=== PATIENT | female | born 1975 | race Caucasian/White ===

== ENCOUNTER 2019-04-18 14:06 | Emergency (ER) | payer SELFPAY ==
[2019-04-18 14:08] VITALS: BP 146/77; PULSE 81; RESP 16; TEMP 36.8; O2SAT 98; BMI 29.3
--- NOTE | 2019-04-18 14:20 | RAD_ITS ---
STUDY: X-RAY - RIGHT SHOULDER REASON FOR EXAM: Female, 43 years old. PATIENT FELL WHILE ROLLERSKATING TODAY. PAIN IN RIGHT SHOULDER, RIGHT UPPER RIBS ANTERIORLY. PAIN IN RIGHT HIP AND PELVIS WELL. TECHNIQUE: 4 view(s) of the shoulder. COMPARISON: None. FINDINGS: Normal glenohumeral articulation. Normal acromioclavicular joint. Normal acromion. Normal humeral head and visualized proximal humerus. The soft tissue structures are unremarkable. Normal visualized pulmonary apex. RAD/Shoulder min 2 Views IMPRESSION: Normal x-ray examination of the shoulder. Electronically Signed: Faizan Henry MD ([place]) at 14:54 EST , Service support ,
--- NOTE | 2019-04-18 14:20 | RAD_ITS ---
STUDY: X-RAY - UNILATERAL RIBS ( RIGHT ) WITH CHEST REASON FOR EXAM: Female, 43 years old. PATIENT FELL WHILE ROLLERSKATING TODAY. PAIN IN RIGHT SHOULDER, RIGHT UPPER RIBS ANTERIORLY. PAIN IN RIGHT HIP AND PELVIS WELL. TECHNIQUE - RIBS: 4 view(s) of the ribs. TECHNIQUE - CHEST: PA COMPARISON: None. FINDINGS - RIBS: Normal visualized ribs without a demonstrated fracture. FINDINGS - CHEST: The lungs are clear and expanded. There is no demonstrated pleural abnormality. Normal size heart. Normal mediastinum and damon. Normal visualized pulmonary arteries. Normal visualized aortic arch and descending thoracic aorta. Normal visualized thoracic spine. Normal visualized ribs, clavicles, and shoulders. There is no demonstrated abnormality of the visualized soft tissue structures of the upper abdomen. RAD/Ribs Uni Min 3V w/PA Chest IMPRESSION: RIBS: Normal x-ray examination of the ribs. CHEST: Normal x-ray examination of the chest. Electronically Signed: Faizan Henry MD ([place]) at 14:52 EST , Service support ,
--- NOTE | 2019-04-18 14:31 | RAD_ITS ---
STUDY: X-RAY - PELVIS AND RIGHT HIP REASON FOR EXAM: Female, 43 years old. PATIENT FELL WHILE ROLLERSKATING TODAY. PAIN IN RIGHT SHOULDER, RIGHT UPPER RIBS ANTERIORLY. PAIN IN RIGHT HIP AND PELVIS WELL. TECHNIQUE: 3 views of the pelvis and hip. COMPARISON: None. FINDINGS: There is a non-specific bowel gas pattern. Normal visualized soft tissue structures. There is surgical clips of the lower left abdomen and right/left pelvis. Normal bilateral iliac wings, sacroiliac joints and visualized sacrum. Normal bilateral superior and inferior pubic rami. Normal pubic symphysis. Normal bilateral ischial tuberosities. Normal visualized femoral head. Normal acetabulum. Normal hip joint. RAD/HIP, UNI W/ Pelvis 2-3 Views IMPRESSION: Normal x-ray examination of the pelvis and right hip. Electronically Signed: Faizan Henry MD ([place]) at 14:54 EST , Service support ,
[2019-04-18] MEDS: HYDROcodone Bitartrate/Apap 5/325 Tablet PO (14:50)
--- NOTE | 2019-04-18 15:01 | ED.VISSUMM ---
- ER Visit Summary Date of Service: 04/18/19 Chief Complaint: [Fall with injury to right hip and shoulder] History of Present Illness: The patient is a 43 F [presents to the emergency department with complaint of a fall this afternoon about 20 minutes ago. Patient states she was rollerskating when she tripped and fell and her son fell on top of her. Patient complaining of pain to the right shoulder and right hip. Patient has been ambulatory. Patient is right-hand dominant. She denies any neck pain. Denies any paresthesias. Patient complains of pain to the right anterior chest as well with breathing. Has no medical history. She denies head injury or loss of consciousness. She denies any paresthesias.] Physical Examination: [HEENT-PERRLA, EOMI. Cranial nerves II through XII grossly intact. TMs clear. Mucous membranes moist. No adenopathy. No C-spine tenderness to palpation. Normal active range of motion is painless. Cardiovascular-regular rate and rhythm without murmur or ectopy Lungs-clear to auscultation, chest wall stable without crepitus or subcu emphysema. Patient has tenderness palpation over the right anterior chest wall and into the mid axillary line. No external evidence of trauma noted. Abdomen-normoactive bowel sounds, soft, nontender, no rebound or rigidity, no peritoneal signs. Extremities-intact ?4, normal range of motion, normal pulses, atraumatic. Patient has tenderness palpation over the right shoulder diffusely over the glenohumeral joint. There is no obvious deformity. No sulcus sign. She is neuro vastly intact distally. She has limited range of motion secondary to pain.] Hip-patient is some tenderness over the right hip and pelvis region. No shortening or external rotation noted the extremity. She is neuro vastly intact distally. Test Results: [X-rays of the right shoulder as well as the right hip and right ribs with chest x-ray obtained were all unremarkable. No fractures noted.] Emergency Department Course and Treatment: [She was given 1 [place]]. Patient was given a sling. Treatment Plan: [She will be given a sling and a prescription for naproxen as well as a few [place] for severe pain. Patient to follow-up with primary care physician within next 5 to 7 days.] Disposition: [Discharged home in stable condition.] Impression: [Fall Contusion right shoulder, right hip, right chest wall] This note was generated with [employer] dictation software. It may contain incorrect words, spelling, and punctuation that were not noted in review of the chart prior to signing ED Disposition - Plan for ED Patient: Referrals: Care Physician,No Primary [Primary Care Provider] -
--- NOTE | 2019-04-18 15:04 | DCINST.ED_ITS ---
ED Disposition - Plan for ED Patient: Instructions: FALL, Mechanical, CONTUSION, Soft Tissue, CONTUSION, Lower Extremity, CONTUSION, Upper Extremity, Rib Contusion Prescriptions: Naproxen [Naprosyn] 500 mg PO BID PRN #20 tab Prescription Printed Hydrocodone Bitart/Apap 5-325 [[place] 5MG-325MG] 1 tab PO Q4H PRN PRN 2 Days #10 tab PRN Reason: Pain Prescription Printed Referrals: Care Physician,No Primary [Primary Care Provider] - 5-7 Days
[2019-04-18 15:22] VITALS: PULSE 79; RESP 17; O2SAT 97
== END 2019-04-18 15:22 | disposition home or self-care (01) ==
PROVIDERS: Emergency Provider Emergency Medicine
DX: S20.211A Contusion of right front wall of thorax, initial encounter (principal); S40.011A Contusion of right shoulder, initial encounter; S70.01XA Contusion of right hip, initial encounter; W01.0XXA Fall on same level from slipping, tripping and stumbling without subsequent striking against object, initial encounter; Y93.51 Activity, roller skating (inline) and skateboarding; Y92.9 Unspecified place or not applicable
CPT/HCPCS: 71101; 73030; 73502; 99283